=== PATIENT | male | born 1990 | race American Indian/Alaskan Native ===

== ENCOUNTER 2021-02-21 05:33 | Emergency (ER) | payer SELFPAY ==
--- NOTE | 2021-02-21 06:18 | Emergency Department Report ---
ED Chest Pain HPI - General Chief Complaint: Chest Pain Stated Complaint: CHEST PAIN PUI?: No Time Seen by Provider: 02/21/21 06:04 Source: patient, EMS ( EMS documentation not available at time of chart dictation ), RN notes reviewed Mode of arrival: Ambulatory Limitations: No Limitations - History of Present Illness Initial Comments: The patient was evaluated in the emergency department for symptoms described in the history of present illness. He/she was evaluated in the context of the global COVID-19 pandemic, which necessitated consideration that the patient might be at risk for infection with the virus that causes COVID-19. Institutional protocols and algorithms that pertain to the evaluation of patients at risk for COVID-19 are in a state of rapid change based on information released by regulatory bodies including the CDC and federal and state organizations. These policies and algorithms were followed during the patient's care in the emergency department. Please note that these policies, procedures and recommendations changed on a rapid basis. The patient is a 30-year-old gentleman. He is not known to myself previously. He is right-hand dominant. He denies significant personal past medical history, and denies significant family medical history. Specifically denies family history of DVT, PE, CAD and ACS. The patient presents today to the emergency room with a complaint of "it feels like my chest is caving in." The patient reports recreational consumption of ecstasy 3 days ago. He also reports that earlier on this evening, he was at a club, "feeling fine", when he reports that he consumed some alcohol. Shortly thereafter, he developed central and bilateral anterior chest pressure, and "feels like my chest is caving in", which is constant, and does not radiate to the back, arms or neck. He felt weak, lightheaded, but did not pass out or lose consciousness, and called 911. His pain is essentially resolved at this time. At the moment, he denies headache, neck pain, abdominal pain, vomiting, diaphoresis, leg pain, leg swelling, travel, surgery, immobilization, DVT and pulmonary embolism risk factors. He denies intravenous drug use, and hard drug use. MD Complaint: chest pain -: Sudden Onset: associated with drug use Pain Location: substernal, left chest, right chest Pain Radiation: none Severity: moderate Quality: other (Feels like my chest is caving in) Consistency: now resolved Improves With: other (Given aspirin and nitroglycerin by EMS in the field) Worsens With: nothing Aspirin use within the Past 7 Days: (0) No (Prior to EMS administration no recent aspirin consumption) - Related Data On Oral Contraceptives: No Allergies Allergy/AdvReac Type Severity Reaction Status Date / Time No Known Allergies Allergy Verified 02/21/21 05:43 Heart Score - HEART Score History: Slightly suspicious EKG: Non-specific Age: < 45 Risk factors: No known risk factors Troponin: < normal limit HEART Score: 1 - EKG Read Time Time EKG Completed: 06:00 EKG Read Time: 06:00 - Critical Actions Critical Actions: 0-3 pts:0.9-1.7%risk of adverse cardiac event.Candidate for discharge ED Review of Systems ROS: Stated complaint: CHEST PAIN Other details as noted in HPI Constitutional: denies: diaphoresis, fever Eyes: denies: eye discharge ENT: denies: epistaxis Respiratory: denies: cough, shortness of breath, SOB with exertion, SOB at rest Cardiovascular: chest pain. denies: dyspnea on exertion Gastrointestinal: denies: abdominal pain, nausea, vomiting, diarrhea Musculoskeletal: denies: back pain Neurological: weakness Psychiatric: anxiety Hematological/Lymphatic: denies: easy bleeding ED Past Medical Hx - Past Medical History Previous Medical History?: No ED Physical Exam - General Limitations: No Limitations General appearance: alert, in no apparent distress - Head Head exam: Present: atraumatic, normocephalic - Eye Eye exam: Present: normal appearance, EOMI. Absent: nystagmus Pupils: Present: other (Visual acuity intact to finger counting, color perception, reading at a close distance) - ENT ENT exam: Present: normal exam, normal orophraynx, mucous membranes moist, normal external ear exam - Neck Neck exam: Present: normal inspection, full ROM. Absent: tenderness, meningismus - Respiratory Respiratory exam: Present: normal lung sounds bilaterally. Absent: respiratory distress, wheezes, rales, rhonchi, stridor, decreased breath sounds - Cardiovascular Cardiovascular Exam: Present: regular rate, normal rhythm, normal heart sounds. Absent: bradycardia, tachycardia, irregular rhythm, systolic murmur, diastolic murmur, rubs, gallop - GI/Abdominal GI/Abdominal exam: Present: soft. Absent: distended, tenderness, guarding, rebound, rigid, pulsatile mass - Rectal Rectal exam: Present: deferred - Extremities Exam Extremities exam: Present: normal inspection, full ROM, other (2+ pulses noted in the bilateral upper and lower extremities. There is no palpable cord. negative Homans sign. Muscular compartments are soft. The pelvis is stable.). Absent: pedal edema, calf tenderness - Back Exam Back exam: Present: normal inspection, full ROM. Absent: tenderness, CVA tenderness (R), CVA tenderness (L), paraspinal tenderness, vertebral tenderness - Neurological Exam Neurological exam: Present: alert (There is no past-pointing. There is normal [id number]-im-qnwj. There is a negative pronator drift.), oriented X3, normal gait, other (No facial droop. Tongue midline. Extraocular movements intact bilat erally. Facial sensation intact to light touch in V1, V2, V3 distribution bilaterally. 5 and a 5 strength in 4 extremities. Sensation intact to light touch in 4 extremities.). Absent: motor sensory deficit - Psychiatric Psychiatric exam: Present: normal affect, normal mood - Skin Skin exam: Present: warm, dry, intact, normal color. Absent: rash ED Course Vital Signs 02/21/21 02/21/21 02/21/21 05:44 06:15 06:16 Temperature 98.6 F Pulse Rate 68 65 76 Respiratory 16 17 16 Rate Blood Pressure Blood Pressure 127/83 125/80 [Right] O2 Sat by Pulse 99 100 100 Oximetry 02/21/21 02/21/21 02/21/21 06:31 06:45 07:03 Temperature Pulse Rate 67 64 72 Respiratory 13 15 17 Rate Blood Pressure 125/80 130/79 129/91 Blood Pressure [Right] O2 Sat by Pulse 100 100 94 Oximetry 02/21/21 02/21/21 02/21/21 07:15 07:31 07:45 Temperature Pulse Rate 88 72 69 Respiratory 10 L 18 15 Rate Blood Pressure 129/91 129/91 114/83 Blood Pressure [Right] O2 Sat by Pulse 99 100 98 Oximetry 02/21/21 02/21/21 02/21/21 08:01 08:15 08:31 Temperature Pulse Rate 75 69 69 Respiratory 13 15 13 Rate Blood Pressure 125/80 124/77 123/71 Blood Pressure [Right] O2 Sat by Pulse 99 97 97 Oximetry 02/21/21 02/21/21 08:45 09:01 Temperature Pulse Rate 72 67 Respiratory 13 16 Rate Blood Pressure 116/60 116/60 Blood Pressure [Right] O2 Sat by Pulse 97 98 Oximetry - Reevaluation(s) Reevaluation #1: 02/21/21 08:42 The patient is clinically sober at this time, with a GCS of 15, and ambulates with a steady gait 02/21/21 09:40 On final reassessment, the patient is sleeping comfortably in his stretcher, in no acute distress, and endorsing readiness for discharge. All questions answered. - Pulse Oximetry Interpretation Digit-Finger Initial Pulse Oximetry Readin O2 Sat by Pulse Oximetry: 98 Actions Taken: none DHEERAJ score - Dheeraj Score Age > 65: (0) No Aspirin use within the Past 7 Days: (0) No 3 or more CAD Risk Factors: (0) No 2 or more Angina events in past 24 hrs: (0) No Known CAD with more than 50% Stenosis: (0) No Elevated Cardiac Markers: (0) No ST Deviation Greater than 0.5mm: (0) No DHEERAJ Score: 0 ED Medical Decision Making - Lab Data Result diagrams: 02/21/21 06:48 02/21/21 06:48 Vital Signs 02/21/21 02/21/21 02/21/21 05:44 06:15 06:16 Temperature 98.6 F Pulse Rate 68 65 76 Respiratory 16 17 16 Rate Blood Pressure Blood Pressure 127/83 125/80 [Right] O2 Sat by Pulse 99 100 100 Oximetry 02/21/21 02/21/21 02/21/21 06:31 06:45 07:03 Temperature Pulse Rate 67 64 72 Respiratory 13 15 17 Rate Blood Pressure 125/80 130/79 129/91 Blood Pressure [Right] O2 Sat by Pulse 100 100 94 Oximetry 02/21/21 07:15 Temperature Pulse Rate 88 Respiratory 10 L Rate Blood Pressure 129/91 Blood Pressure [Right] O2 Sat by Pulse 99 Oximetry Lab Results 02/21/21 02/21/21 02/21/21 Range/Units 06:48 06:48 06:48 WBC 7.5 (4.5-11.0) K/mm3 RBC 4.29 (3.65-5.03) M/mm3 Hgb 13.1 (11.8-15.2) gm/dl Hct 38.8 (35.5-45.6) % MCV 91 (84-94) fl MCH 31 (28-32) pg MCHC 34 (32-34) % RDW 11.9 L (13.2-15.2) % Plt Count 199 (140-440) K/mm3 Lymph % (Auto) 18.8 (13.4-35.0) % [place] % (Auto) 4.6 (0.0-7.3) % Eos % (Auto) 1.0 (0.0-4.3) % Baso % (Auto) 0.3 (0.0-1.8) % Lymph # (Auto) 1.4 (1.2-5.4) K/mm3 [place] # (Auto) 0.3 (0.0-0.8) K/mm3 Eos # (Auto) 0.1 (0.0-0.4) K/mm3 Baso # (Auto) 0.0 (0.0-0.1) K/mm3 Seg Neutrophils % 75.3 H (40.0-70.0) % Seg Neutrophils # 5.6 (1.8-7.7) K/mm3 Sodium 138 (137-145) mmol/L Potassium 3.6 (3.6-5.0) mmol/L Chloride 102.7 (98-107) mmol/L Carbon Dioxide 24 (22-30) mmol/L Anion Gap 15 mmol/L BUN 11 (9-20) mg/dL Creatinine 1.3 (0.8-1.3) mg/dL Estimated GFR > 60 ml/min BUN/Creatinine Ratio 8 % Glucose 98 (75-100) mg/dL Calcium 9.2 (8.4-10.2) mg/dL Magnesium 2.00 (1.7-2.3) mg/dL Total Bilirubin 0.40 (0.1-1.2) mg/dL AST 20 (5-40) units/L ALT 22 (7-56) units/L Alkaline Phosphatase 63 (35-129) units/L Total Creatine Kinase 142 (55-170) units/L Troponin T < 0.010 (0.00-0.029) ng/mL Total Protein 7.2 (6.3-8.2) g/dL Albumin 4.3 (3.9-5) g/dL Albumin/Globulin Ratio 1.5 % Lipase 17 (13-60) units/L Plasma/Serum Alcohol < 0.01 (0-0.07) % - EKG Data -: EKG Interpreted by Co EKG shows normal: sinus rhythm Rate: normal - EKG Data When compared to previous EKG there are: previous EKG unavailable 02/21/21 08:41 EKG #1 is interpreted at 0600 a.m. Sinus rhythm, 64 bpm. Normal axis, normal intervals, high left ventricular voltage, early repolarization. Intervals within normal limits. This is a normal variant for this patient's age, gender, and demographic background. This EKG is not a STEMI EKG #2, interpreted at 08: 4 0 a.m. Sinus rhythm, 66 bpm. Normal axis, normal intervals, high left ventricular voltage, early repolarization. This EKG is not consistent with STEMI - Radiology Data Radiology results: pending, report reviewed, image reviewed CHEST 1 VIEW 02/21/2021 5:56 AM INDICATION / CLINICAL INFORMATION: cp, " chest caving in". COMPARISON: None available. FINDINGS: SUPPORT DEVICES: None. HEART / MEDIASTINUM: No significant abnormality. LUNGS / PLEURA: No significant pulmonary or pleural abnormality. No pneumothorax. ADDITIONAL FINDINGS: No significant additional findings. IMPRESSION: 1. No acute findings. Signer Name: Brett Starr MD Signed: 02/21/2021 5:57 AM Workstation Name: [id number] - Medical Decision Making Differential diagnosis, including but not limited to: Alcoholic gastritis, GERD, gastritis, hiatal hernia, pneumonia, coronary artery disease, dehydration, electrolyte derangement Assessment and plan: 30-year-old gentleman, who is not currently tachycardic, tachypneic or hypoxic, who denies DVT and pulmonary embolism risk factors, who is low risk by Wells criteria for pulmonary embolism, PERC negative EKG unchanged x2, troponin negative x2, symptoms now resolved. I performed bedside transthoracic echocardiogram, itdwp-[id number] ultrasound, which demonstrated no large pericardial effusion, grossly normal LV ejection fraction, approximately 50 to 55%. No wall motion abnormalities were detected. Patient has equal pulses in the upper and lower extremities, no pulsatile abdominal mass, and an unremarkable x-ray of the chest, therefore, aortic disease is very unlikely. Patient at low risk for major adverse cardiac event as per heart score. Patient felt improved after symptomatic and supportive therapy. EKG suggestive of high left ventricular voltage, early repolarization, not consistent with STEMI. Patient counseled to avoid alcohol consumption, he may follow-up with an outpatient primary care doctor and/or lift mechanic. All questions answered. Return precautions are reviewed. Critical care attestation.: If time is entered above; I have spent that time in minutes in the direct care of this critically ill patient, excluding procedure time. ED Disposition Clinical Impression: History of chest pain Disposition: HOME / SELF CARE / HOMELESS Is pt being admited?: No Does the pt Need Aspirin: No Condition: Good Instructions: Nonspecific Chest Pain, Adult Additional Instructions: We recommend that the patient get at least 7 to 8 hours of good quality uninterrupted sleep each night. Avoid consumption of alcohol, tobacco, and smoke products. Patient may take nqzt-[id number]-[id number] Tylenol/acetaminophen, 60 mg, every 4-6 hours as needed for pain, maximum daily dose to not exceed 3 g per 24 hours. Patient may also take rwop-hes-[id number] ibuprofen, 400 mg by mouth, with food, every 6 hours as needed for pain. He may also take nxkp-mgg-mhexqtx Pepcid/famotidine, 20 mg, once every 12-24 hours as needed for physical pain. We recommend that the patient follow-up with a primary care doctor or lift mechanic within the next 3 to 5 days for repeat checkup and evaluation. Dr. Martha Colon Is a local primary care doctor. [facility] is a local cardiology practice. Please return to the emergency room right away with new chest pain, new pain, worsened pain, migration of pain, projectile vomiting, change in mental status, confusion, inability to tolerate liquid feeds, new, worsened or different symptoms not present on the initial emergency room evaluation. Participates in physical activity as tolerated Referrals: TEA COLON MD [Staff Physician] - 3-5 Days [facility] [Provider Group] - 3-5 Days
[2021-02-21] MEDS ORDERED: SUCRALFATE 1 GM/10 ML ORAL LIQD PO ONE (06:33)
[2021-02-21] MEDS ORDERED: PANTOPRAZOLE 40 MG TAB PO ONE (06:33)
[2021-02-21 07:01] LABS: Basophils % (Auto) 0.3 % (0.0-1.8); Eosinophils # (Auto) 0.1 K/mm3 (0.0-0.4); Hematocrit 38.8 % (35.5-45.6); Hemoglobin 13.1 gm/dl (11.8-15.2); Lymphocytes # (Auto) 1.4 K/mm3 (1.2-5.4); Lymphocytes % (Auto) 18.8 % (13.4-35.0); Mean Corpuscular HGB Conc 34 % (32-34); Mean Corpuscular Volume 91 fl (84-94); Monocytes # (Auto) 0.3 K/mm3 (0.0-0.8); Monocytes % (Auto) 4.6 % (0.0-7.3); Platelet Count 199 K/mm3 (140-440); Red Blood Count 4.29 M/mm3 (3.65-5.03); Red Cell Distribution Width 11.9 % (13.2-15.2)
--- NOTE | 2021-02-21 07:01 | XRay Report ---
CHEST 1 VIEW 02/21/2021 5:56 AM INDICATION / CLINICAL INFORMATION: cp, " chest caving in". COMPARISON: None available. FINDINGS: SUPPORT DEVICES: None. HEART / MEDIASTINUM: No significant abnormality. LUNGS / PLEURA: No significant pulmonary or pleural abnormality. No pneumothorax. ADDITIONAL FINDINGS: No significant additional findings. IMPRESSION: 1. No acute findings. Signer Name: Brett Starr MD Signed: 02/21/2021 6:57 AM Workstation Name: [id number]
[2021-02-21 07:28] LABS: Alanine Aminotransferase 22 units/L (7-56); Albumin 4.3 g/dL (3.9-5); BUN/Creatinine Ratio 8; Blood Urea Nitrogen 11 mg/dL (9-20); Calcium 9.2 mg/dL (8.4-10.2); Hemolysis Index 10
[2021-02-21 10:34] VITALS: BP 120/78
--- NOTE | 2021-02-22 09:45 | Electrocardiograph Report ---
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
--- NOTE | 2021-02-22 09:47 | Electrocardiograph Report ---
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
== END 2021-02-21 10:49 | disposition home or self-care (01) ==
LOC: ED 05:33
DX: R07.89 Other chest pain (principal)
CPT/HCPCS: 36415; 71045; 80053; 80320; 82550; 83690; 83735; 84484; 85025; 93005; 99284; G0480